=== PATIENT | male | born 2000 | race African-American/Black ===

== ENCOUNTER 2021-05-01 11:44 | Emergency (ER) | payer MEDICAID, SELFPAY ==
[2021-05-01] MEDS ORDERED: diphenhydrAMINE 50 MG/ML VIAL ONE (12:38)
[2021-05-01] MEDS ORDERED: Ketorolac Tromethamine 30 MG/ML VIAL ONE (12:38)
[2021-05-01] MEDS ORDERED: Metoclopramide HCl 10 MG/2 ML VIAL ONE (12:39)
[2021-05-01 12:43] LABS: #Monocytes 0.5 10x3/uL (0.0-1.1); #Neutrophils 6.9 10x3/uL (1.5-8.4); %Basophils 0.5 % (0.0-2.0); %Eosinophils 0.2 % (0.0-6.0); %Lymphocytes 14.8 % (18.0-47.0); %Monocytes 5.2 % (0.0-10.0); %Neutrophils 79.1 % (40.0-75.0); Hemoglobin 14.9 g/dL (13.5-17.5); Mean Corpuscular HGB CONC 34.1 g/dL (32.0-36.0); Mean Corpuscular Hemoglobin 28.4 pg (27.0-33.0); Mean Corpuscular Volume 83.2 fl (81.2-95.1); Mean Platelet Volume 10.3 fl (7.4-10.4); Platelet Count 185 10x3/uL (150-450); RBC Distribution Width 13.9 % (11.5-14.5); Red Blood Cell (RBC) Count 5.25 10x6/uL (4.32-5.72); White Blood Cell (WBC) Count 8.7 10x3/uL (3.5-10.5)
[2021-05-01 13:02] LABS: ALT (SGPT) 22 U/L (8-55); AST (SGOT) 20 U/L (5-34); Albumin 4.8 g/dL (3.5-5.0); Alkaline Phosphatase 57 U/L (40-110); Anion Gap 17 mmol/L (10-20); BUN (Urea Nitrogen) 9 mg/dL (8.9-20.6); Bilirubin, Total 0.8 mg/dL (0.2-1.2); Calc. Creatinine Clearance 0 mL/min (70-130); Calcium 9.6 mg/dL (7.8-10.44); Carbon Dioxide 25 mmol/L (22-29); Chloride 104 mmol/L (98-107); Globulin 2.4 g/dL (2.4-3.5); Glucose 122 mg/dL (70-105); Potassium 3.9 mmol/L (3.5-5.1); Protein, Total 7.2 g/dL (6.0-8.3); Sodium 142 mmol/L (136-145)
== END 2021-05-01 14:41 | disposition home or self-care (01) ==
LOC: CSHERS 11:44
DX: R51.9 Headache, unspecified (principal); F17.290 Nicotine dependence, other tobacco product, uncomplicated
CPT/HCPCS: 70450; 80053; 85025; 94760; 96374; 96375; J1200; J1885; J2765

== ENCOUNTER 2021-05-06 10:04 | Emergency (ER) | payer SELFPAY ==
[2021-05-06] MEDS ORDERED: diphenhydrAMINE 50 MG/ML VIAL ONE (11:55)
[2021-05-06] MEDS ORDERED: Diazepam 5 MG TAB ONE (11:56)
[2021-05-06] MEDS ORDERED: Metoclopramide HCl 10 MG/2 ML VIAL ONE (11:56)
[2021-05-06] MEDS ORDERED: methylPREDNISolone Sod Succ/PF 125 MG/2 ML VIAL ONE (12:49)
[2021-05-06] MEDS ORDERED: Ketorolac Tromethamine 30 MG/ML VIAL ONE (12:50)
[2021-05-06] MEDS ORDERED: Ondansetron PF 4 MG/2 ML Vial ONE (12:50)
== END 2021-05-06 14:10 | disposition home or self-care (01) ==
LOC: CSHERS 10:04
DX: R51.9 Headache, unspecified (principal); F17.290 Nicotine dependence, other tobacco product, uncomplicated
CPT/HCPCS: 96365; 96375; J1200; J1885; J2405; J2765; J2930